=== PATIENT | female | born 1940 | race African-American/Black ===

== ENCOUNTER 2024-10-25 07:26 | Inpatient (IN) | payer OTHER, MEDICARE ==
[~2024-10-25] VITALS: Ht 165.1 cm; Wt 57.2 kg
[2024-10-25] VITALS (53 sets, daily range): BP systolic 117–152; BP diastolic 74–136; PULSE 72–126; RESP 11–37; TEMP 36.5–36.8; O2SAT 93–99
[2024-10-25] MEDS ORDERED: IODIXANOL 320MG/ML 100 ML BOTTLE IV ONE ×2 (07:36→08:12)
[2024-10-25] MEDS ORDERED: HEPARIN 1000 UNITS/ML 10ML ONE (07:36)
[2024-10-25] MEDS ORDERED: LIDOCAINE HCL 1% 20ML VIAL ONE (07:36)
[2024-10-25] MEDS ORDERED: FENTANYL CITRATE/PF 50MCG/ML 2ML VIAL ONE (07:37)
[2024-10-25] MEDS ORDERED: MIDAZOLAM HCL 2 MG/2 ML VIAL ONE (07:37)
[2024-10-25] MEDS: HEPARIN 5000 UNITS/ML VIAL IV ONE (07:38)
[2024-10-25] MEDS: ASPIRIN 325MG TABLET PO ONE (07:38)
[2024-10-25] MEDS ORDERED: ONDANSETRON HCL 4MG/2ML INJ ONE (07:45)
[2024-10-25] MEDS ORDERED: EPINEPHRINE 0.1MG/ML (1:10,000) 10ML SYR ONE (07:49)
[2024-10-25] MEDS ORDERED: ATROPINE SULFATE 1MG/10ML SYR ONE (07:49)
[2024-10-25 07:54] LABS: BASOPHILS % 0.9 % (0.0-2.0); DIFFERENTIAL COMMENT 0; EOSINOPHILS % 1.6 % (0.0-5.0); HEMATOCRIT. 45.1 % (36.0-48.0); HEMOGLOBIN. 14.7 g/dL (12.0-16.0); LYMPHOCYTES % 23.8 % (20.0-50.0); MEAN CORPUSCULAR HEMOGLOBIN 29.9 pg (28.0-32.0); MEAN CORPUSCULAR HGB CONC 32.7 g/dL (31.0-37.0); MEAN CORPUSCULAR VOLUME 91.6 fL (81.0-99.0); MEAN PLATELET VOLUME 8.7 fl (7.4-10.4); MONOCYTES % 6.1 % (2.0-8.0); NEUTROPHILS % 67.6 % (40.0-76.0); PLATELET 662 x1000/uL (130-400); RED BLOOD CELL COUNT 4.92 mill/uL (4.2-5.4); RED CELL DISTRIBUTION WIDTH 16.6 % (11.6-14.6); WHITE BLOOD COUNT 11.6 x1000/uL (4.5-11.0)
[2024-10-25 08:20] LABS: CALCIUM 9.7 mg/dL (8.7-10.4); CARBON DIOXIDE 26 mEq/L (21-32)
[2024-10-25 08:24] LABS: CHLORIDE 106 mEq/L (98-107); POTASSIUM 4.3 mEq/L (3.5-5.1); SODIUM 142 mEq/L (136-145)
[2024-10-25 08:25] LABS: CREATININE 0.9 mg/dL (0.6-1.0); GLUCOSE 178 mg/dL (70-105); UREA NITROGEN BLOOD 8 mg/dL (9-23)
[2024-10-25] MEDS ORDERED: TICAGRELOR 90 MG TABLET PO ONE (08:26)
[2024-10-25 08:32] LABS: TROPONIN I HIGH SENSITIVITY 1913 ng/L (3.0-34)
[2024-10-25] MEDS ORDERED: ATROPINE SULFATE 1MG/10ML SYR IV PRN (08:45)
[2024-10-25] MEDS ORDERED: MORPHINE SULFATE 2 MG/ML INJ (NOT FOR IM USE) IV PRN ×2 (08:45)
[2024-10-25] MEDS ORDERED: ACETAMINOPHEN 325MG TABLET PO PRN ×3 (08:45→10:00)
[2024-10-25] MEDS ORDERED: ONDANSETRON HCL 4MG/2ML INJ IV PRN ×2 (08:45→10:00)
[2024-10-25] MEDS ORDERED: DEXTROSE 50% WATER 50ML SYRINGE IV PRN (10:00)
[2024-10-25] MEDS ORDERED: CLONIDINE 0.1MG TABLET PO PRN (10:00)
[2024-10-25] MEDS ORDERED: GUAIFENESIN 200MG/10ML SUGAR FREE UDC PO PRN (10:00)
[2024-10-25] MEDS ORDERED: DOCUSATE SODIUM 100MG CAPSULE PO PRN (10:00)
[2024-10-25] MEDS ORDERED: IPRATROPIUM/ALBUTEROL 0.5-3(2.5)MG/3ML NEB HHN PRN (10:00)
[2024-10-25] MEDS ORDERED: MAGNESIUM/ALUMINUM HYDROXIDE/SIMETHICONE 30ML UDC PO PRN (10:00)
[2024-10-25] MEDS: SODIUM CHLORIDE 0.45% 1,000 ML IV SCH (10:43)
[2024-10-25] MEDS: BLOOD SUGAR DIAGNOSTIC STRIP TEST SCH (11:50)
[2024-10-25 12:35] LABS: TROPONIN I HIGH SENSITIVITY 11007 ng/L (3.0-34)
[2024-10-25] MEDS: INSULIN LISPRO 100 UNITS/ML SUBCUT SCH (12:43)
[2024-10-25 14:26] LABS: CLARITY URINE CLEAR (CLEAR); COLOR URINE YELLOW (YELLOW); GLUCOSE URINE NEGATIVE (NEGATIVE); KETONES URINE NEGATIVE (NEGATIVE); LEUKOCYTE ESTERASE URINE NEGATIVE (NEGATIVE); NITRITE URINE NEGATIVE (NEGATIVE); OCCULT BLOOD URINE 3+ (NEGATIVE); PROTEIN URINE 1+ (NEGATIVE); SPECIFIC GRAVITY URINE 1.061 (1.005-1.030); UROBILINOGEN URINE 0.2 E.U./dL (0.2-1.0)
[2024-10-25 14:47] LABS: BACTERIA URINE 2+; RBC URINE 0-2 /hpf (0-2); SQUAMOUS EPITHELIAL CELL URINE 1+ /lpf (RARE/1+); YEAST URINE NONE SEEN
[2024-10-25 14:49] LABS: *AMPHETAMINES SCREEN URINE NEGATIVE (NEGATIVE); *BARBITURATES SCREEN URINE NEGATIVE (NEGATIVE); *BENZODIAZEPINES SCREEN URINE PRESUMPTIVE POSITIVE (NEGATIVE); *COCAINE SCREEN URINE NEGATIVE (NEGATIVE); METHADONE URINE SCREEN NEGATIVE (NEGATIVE); OPIATES URINE SCREEN NEGATIVE (NEGATIVE)
[2024-10-25 14:50] LABS: CANNABINOID URINE SCREEN NEGATIVE (NEGATIVE); ECSTASY MDMA SCREEN URINE NEGATIVE (NEGATIVE); PHENCYCLIDINE URINE SCREEN NEGATIVE (NEGATIVE)
[2024-10-25] MEDS: METOPROLOL TARTRATE 25MG TABLET PO SCH (16:30)
[2024-10-25] MEDS: HYDROCODONE/ACETAMINOPHEN 5/325MG TABLET PO PRN (16:31)
[2024-10-25 18:14] LABS: CREATINE KINASE 1513 IU/L (34-145)
[2024-10-25 18:52] LABS: TROPONIN I HIGH SENSITIVITY 72953 ng/L (3.0-34)
[2024-10-25] MEDS: TICAGRELOR 90 MG TABLET PO SCH (22:19)
[2024-10-25] MEDS: ATORVASTATIN CALCIUM 40MG TABLET PO SCH (22:21)
[2024-10-26] VITALS (51 sets, daily range): BP systolic 98–149; BP diastolic 59–101; PULSE 72–124; RESP 15–36; TEMP 36.7–37.1; O2SAT 88–97
[2024-10-26 00:09] LABS: CREATINE KINASE 1098 IU/L (34-145)
[2024-10-26 00:35] LABS: TROPONIN I HIGH SENSITIVITY > 25000 ng/L (3.0-34)
[2024-10-26 07:52] LABS: BASOPHILS % 0.5 % (0.0-2.0); DIFFERENTIAL COMMENT 0; EOSINOPHILS % 0.1 % (0.0-5.0); HEMATOCRIT. 45.3 % (36.0-48.0); HEMOGLOBIN. 14.2 g/dL (12.0-16.0); LYMPHOCYTES % 10.1 % (20.0-50.0); MEAN CORPUSCULAR HEMOGLOBIN 27.8 pg (28.0-32.0); MEAN CORPUSCULAR HGB CONC 31.3 g/dL (31.0-37.0); MEAN CORPUSCULAR VOLUME 88.8 fL (81.0-99.0); MEAN PLATELET VOLUME 8.8 fl (7.4-10.4); MONOCYTES % 8.9 % (2.0-8.0); NEUTROPHILS % 80.4 % (40.0-76.0); PLATELET 668 x1000/uL (130-400); RED BLOOD CELL COUNT 5.11 mill/uL (4.2-5.4); RED CELL DISTRIBUTION WIDTH 16.4 % (11.6-14.6); WHITE BLOOD COUNT 13.7 x1000/uL (4.5-11.0)
[2024-10-26 07:55] LABS: CHLORIDE 102 mEq/L (98-107); POTASSIUM 4.5 mEq/L (3.5-5.1); SODIUM 139 mEq/L (136-145)
[2024-10-26 07:56] LABS: CALCIUM 9.8 mg/dL (8.7-10.4); CARBON DIOXIDE 28 mEq/L (21-32)
[2024-10-26 08:01] LABS: CREATININE 0.8 mg/dL (0.6-1.0); GLUCOSE 117 mg/dL (70-105); TRIGLYCERIDE 79 mg/dL (0-150); UREA NITROGEN BLOOD 12 mg/dL (9-23)
[2024-10-26 08:02] LABS: LDL CHOLESTEROL 88 mg/dL (5-100)
[2024-10-26 08:03] LABS: ALANINE AMINOTRANSFERASE 21 IU/L (10-49); ALBUMIN 3.8 g/dL (3.2-4.8); ASPARTATE AMINOTRANSFERASE 133 IU/L (<34); CHOLESTEROL 189 mg/dL (<200); HDL CHOLESTEROL 67 mg/dL (>65); PHOSPHORUS 3.2 mg/dL (2.5-4.9); THYROID STIMULATING HORMONE 0.45 uIU/mL (0.55-4.78)
[2024-10-26 08:04] LABS: BILIRUBIN TOTAL 0.8 mg/dL (0.1-1.0); PROTEIN TOTAL 6.9 g/dL (6.0-8.3)
[2024-10-26] MEDS: ASPIRIN 81MG TABLET PO SCH (09:47)
[2024-10-26] MEDS ORDERED: VERAPAMIL HCL 2.5 MG/1 ML 2ML VIAL IV ONE (10:11)
[2024-10-26] MEDS ORDERED: IODIXANOL 320 MG/ML 150ML BOTTLE IV ONE (10:11)
[2024-10-26] MEDS ORDERED: HEPARIN 1000 UNITS/ML 10ML ONE (10:12)
[2024-10-26] MEDS ORDERED: EPINEPHRINE 0.1MG/ML (1:10,000) 10ML SYR ONE (10:15)
[2024-10-26] MEDS ORDERED: DIPHENHYDRAMINE 50MG/ML VIAL ONE (10:37)
[2024-10-26] MEDS ORDERED: ONDANSETRON HCL 4MG/2ML INJ ONE (10:38)
[2024-10-26] MEDS ORDERED: MIDAZOLAM HCL 2 MG/2 ML VIAL ONE (10:38)
[2024-10-26] MEDS ORDERED: FENTANYL CITRATE/PF 50MCG/ML 2ML VIAL ONE (10:38)
[2024-10-26 11:04] LABS: PROTHROMBIN TIME 10.8 sec (9.6-11.0)
[2024-10-26] MEDS ORDERED: ACETAMINOPHEN 325MG TABLET PO PRN (12:15)
[2024-10-26] MEDS ORDERED: ATROPINE SULFATE 1MG/10ML SYR IV PRN (12:15)
[2024-10-26] MEDS ORDERED: NALOXONE HCL 0.4MG/ML VIAL IV PRN (16:45)
[2024-10-27] VITALS (9 sets, daily range): BP systolic 104–161; BP diastolic 52–142; PULSE 79–114; RESP 18–24; TEMP 36.4–36.8; O2SAT 93–98
[2024-10-27 10:24] LABS: BASOPHILS % 0.9 % (0.0-2.0); DIFFERENTIAL COMMENT 0; EOSINOPHILS % 0.1 % (0.0-5.0); HEMATOCRIT. 42.6 % (36.0-48.0); HEMOGLOBIN. 13.6 g/dL (12.0-16.0); MEAN CORPUSCULAR HEMOGLOBIN 28.9 pg (28.0-32.0); MEAN CORPUSCULAR HGB CONC 32.1 g/dL (31.0-37.0); MEAN CORPUSCULAR VOLUME 90.3 fL (81.0-99.0); MEAN PLATELET VOLUME 9.1 fl (7.4-10.4); MONOCYTES % 9.6 % (2.0-8.0); NEUTROPHILS % 78.4 % (40.0-76.0); PLATELET 578 x1000/uL (130-400); RED BLOOD CELL COUNT 4.71 mill/uL (4.2-5.4); RED CELL DISTRIBUTION WIDTH 16.3 % (11.6-14.6); WHITE BLOOD COUNT 12.9 x1000/uL (4.5-11.0)
[2024-10-27 10:33] LABS: CHLORIDE 103 mEq/L (98-107); SODIUM 138 mEq/L (136-145)
[2024-10-27 10:34] LABS: CALCIUM 9.6 mg/dL (8.7-10.4); CARBON DIOXIDE 26 mEq/L (21-32)
[2024-10-27 10:39] LABS: CREATININE 0.8 mg/dL (0.6-1.0); GLUCOSE 132 mg/dL (70-105); UREA NITROGEN BLOOD 17 mg/dL (9-23)
[2024-10-27] MEDS ORDERED: TICA90TA PO (16:12)
[2024-10-27] MEDS ORDERED: METO25TA6 PO (16:12)
[2024-10-27] MEDS ORDERED: LIP40 PO (16:12)
[2024-10-27] MEDS ORDERED: ASPI-1160 PO (16:12)
[2024-10-27] MEDS ORDERED: SACU1TAB MT (16:12)
== END 2024-10-27 18:15 | disposition home or self-care (01) | DRG 250 ==
LOC: ER 07:26 → CVICU 09:33 → 3WST 10-27 02:15
PROVIDERS: ADMIT Hospitalist; ATTEND Hospitalist
PROC: 4A023N7 Measurement of Cardiac Sampling and Pressure, Left Heart, Percutaneous Approach (ICD-10-PCS; principal; 2024-10-26)
PROC: 02703ZZ Dilation of Coronary Artery, One Artery, Percutaneous Approach (ICD-10-PCS; 2024-10-26)
PROC: B211YZZ Fluoroscopy of Multiple Coronary Arteries using Other Contrast (ICD-10-PCS; 2024-10-26)
DX: I21.09 ST elevation (STEMI) myocardial infarction involving other coronary artery of anterior wall (principal); I50.21 Acute systolic (congestive) heart failure; Q25.0 Patent ductus arteriosus; E11.9 Type 2 diabetes mellitus without complications; E78.00 Pure hypercholesterolemia, unspecified; I11.0 Hypertensive heart disease with heart failure; I25.10 Atherosclerotic heart disease of native coronary artery without angina pectoris; I44.0 Atrioventricular block, first degree; K59.00 Constipation, unspecified; R74.8 Abnormal levels of other serum enzymes; D75.839 Thrombocytosis, unspecified; E03.8 Other specified hypothyroidism; I25.2 Old myocardial infarction; Z79.4 Long term (current) use of insulin; Z79.82 Long term (current) use of aspirin
CPT/HCPCS: 36415; 71045; 80048; 80053; 80061; 80305; 81003; 82550; 82962; 83036; 83735; 83880; 84100; 84439; 84443; 84484; 85025; 85347; 86850; 86900; 92920; 92941; 93005; 93306; 93454; 93458; 93970; 99291; A4606; C1725; C1769; C1874; C1887; C1893; J0461; J1200; J1644; J2250; J2270; J2405; J3010; J3490; L1830; Q9967; J8499

== ENCOUNTER 2024-12-28 04:03 | Inpatient (IN) | payer MEDICARE, OTHER ==
[2024-12-28] VITALS (7 sets, daily range): BP systolic 95–131; BP diastolic 45–73; PULSE 90–98; RESP 16–20; TEMP 36.6–37.1; O2SAT 95–98
[~2024-12-28] VITALS: Ht 160 cm; Wt 52.6 kg
[~2024-12-28 04:03] MED LIST: ASPI-1160 PO; ASPI-1406 MT; ATOR-2 MT; CLOP-31 MT; CYAN50007 PO; HYDR500C18 PO; METO25TA6 MT; METO25TA6 PO; PROT20 PO; SACU1TAB MT; TICA90TA PO
[2024-12-28] MEDS: IPRATROPIUM BROMIDE (0.02%) 0.5MG/2.5ML NEB HHN ONE (04:44)
[2024-12-28] MEDS: ALBUTEROL (0.083%) 2.5MG/3ML NEB HHN ONE (04:44)
[2024-12-28 04:48] LABS: BASOPHILS % 0.9 % (0.0-2.0); DIFFERENTIAL COMMENT 0; EOSINOPHILS % 1.8 % (0.0-5.0); HEMATOCRIT. 39.9 % (36.0-48.0); HEMOGLOBIN. 12.2 g/dL (12.0-16.0); LYMPHOCYTES % 23.5 % (20.0-50.0); MEAN CORPUSCULAR HEMOGLOBIN 27.8 pg (28.0-32.0); MEAN CORPUSCULAR HGB CONC 30.7 g/dL (31.0-37.0); MEAN CORPUSCULAR VOLUME 90.5 fL (81.0-99.0); MEAN PLATELET VOLUME 9.9 fl (7.4-10.4); MONOCYTES % 5.6 % (2.0-8.0); NEUTROPHILS % 68.2 % (40.0-76.0); PLATELET 586 x1000/uL (130-400); RED BLOOD CELL COUNT 4.41 mill/uL (4.2-5.4); WHITE BLOOD COUNT 9.9 x1000/uL (4.5-11.0)
[2024-12-28 05:03] LABS: PARTIAL THROMBOPLASTIN TIME 22.8 sec (23.4-31.0)
[2024-12-28 05:04] LABS: CHLORIDE 113 mEq/L (98-107); SODIUM 145 mEq/L (136-145)
[2024-12-28 05:05] LABS: CALCIUM 9.6 mg/dL (8.7-10.4); CARBON DIOXIDE 24 mEq/L (21-32)
[2024-12-28 05:10] LABS: CREATININE 1.2 mg/dL (0.6-1.0); ETHANOL BLOOD < 10 mg/dL (<10); GLUCOSE 155 mg/dL (70-105); UREA NITROGEN BLOOD 9 mg/dL (9-23)
[2024-12-28 05:22] LABS: TROPONIN I HIGH SENSITIVITY 246 ng/L (3.0-34)
[2024-12-28] MEDS: ASPIRIN 81MG TABLET PO ONE (05:41)
[2024-12-28] MEDS: METHYLPREDNISOLONE SOD SUCC 125MG/2ML (ACT-O-VIAL) IV ONE (05:42)
[2024-12-28] MEDS: ENOXAPARIN 40MG/0.4ML SYR SUBCUT ONE (05:42)
[2024-12-28] MEDS: ONDANSETRON HCL 4MG/2ML INJ IV ONE (05:50)
[2024-12-28 07:39] LABS: *AMPHETAMINES SCREEN URINE NEGATIVE (NEGATIVE); *BARBITURATES SCREEN URINE NEGATIVE (NEGATIVE); *BENZODIAZEPINES SCREEN URINE NEGATIVE (NEGATIVE); *COCAINE SCREEN URINE NEGATIVE (NEGATIVE); CANNABINOID URINE SCREEN NEGATIVE (NEGATIVE); ECSTASY MDMA SCREEN URINE NEGATIVE (NEGATIVE); METHADONE URINE SCREEN NEGATIVE (NEGATIVE); OPIATES URINE SCREEN NEGATIVE (NEGATIVE); PHENCYCLIDINE URINE SCREEN NEGATIVE (NEGATIVE)
[2024-12-28 08:04] LABS: TROPONIN I HIGH SENSITIVITY 281 ng/L (3.0-34)
[2024-12-28] MEDS: SODIUM CHLORIDE 0.9% 200 ML IV ONE ×2 (08:10→08:13)
[2024-12-28] MEDS ORDERED: ONDANSETRON HCL 4MG/2ML INJ IV PRN (09:30)
[2024-12-28] MEDS ORDERED: DOCUSATE SODIUM 100MG CAPSULE PO PRN (09:30)
[2024-12-28] MEDS ORDERED: CLONIDINE 0.1MG TABLET PO PRN (09:30)
[2024-12-28] MEDS ORDERED: MAGNESIUM/ALUMINUM HYDROXIDE/SIMETHICONE 30ML UDC PO PRN (09:30)
[2024-12-28] MEDS ORDERED: IPRATROPIUM/ALBUTEROL 0.5-3(2.5)MG/3ML NEB HHN PRN (09:30)
[2024-12-28] MEDS ORDERED: HYDROCODONE/ACETAMINOPHEN 5/325MG TABLET PO PRN (09:30)
[2024-12-28] MEDS ORDERED: NITROGLYCERIN 0.4MG TABLET SL SL PRN (09:30)
[2024-12-28] MEDS ORDERED: MORPHINE SULFATE 2 MG/ML INJ (NOT FOR IM USE) IV PRN (09:30)
[2024-12-28] MEDS ORDERED: ACETAMINOPHEN 325MG TABLET PO PRN (09:30)
[2024-12-28 11:30] LABS: CLARITY URINE CLEAR (CLEAR); COLOR URINE DARK YELLOW (YELLOW); GLUCOSE URINE 3+ (NEGATIVE); KETONES URINE TRACE (NEGATIVE); LEUKOCYTE ESTERASE URINE NEGATIVE (NEGATIVE); NITRITE URINE NEGATIVE (NEGATIVE); OCCULT BLOOD URINE NEGATIVE (NEGATIVE); PROTEIN URINE 1+ (NEGATIVE); SPECIFIC GRAVITY URINE 1.034 (1.005-1.030)
[2024-12-28] MEDS: ASPIRIN 325MG EC TABLET PO NR (11:40)
[2024-12-28] MEDS: NICOTINE 14MG PATCH TD SCH (11:41)
[2024-12-28 12:27] LABS: MUCUS URINE 3+ /lpf (< = 2+); SQUAMOUS EPITHELIAL CELL URINE 2+ /lpf (RARE/1+)
[2024-12-28 12:29] LABS: BACTERIA URINE 3+; CALCIUM OXALATE CRYSTALS URINE 2+ /lpf
[2024-12-28 12:31] LABS: RBC URINE NONE SEEN /hpf (0-2); WBC URINE 0-2 /hpf (0-2)
[2024-12-28 12:45] LABS: TROPONIN I HIGH SENSITIVITY 2162 ng/L (3.0-34)
[2024-12-28] MEDS: CEFTRIAXONE 1GM/50ML 50 ML IV SCH (12:53)
[2024-12-28] MEDS: AZITHROMYCIN 500MG/250ML 250 ML IV SCH (13:30)
[2024-12-28] MEDS: ENOXAPARIN 60MG/0.6ML SYR SUBCUT SCH (14:35)
[2024-12-28] MEDS: IPRATROPIUM/ALBUTEROL 0.5-3(2.5)MG/3ML NEB HHN SCH (14:41)
[2024-12-28 17:13] LABS: CREATINE KINASE MB FRACTION 9.1 ng/mL (0.5-3.6)
[2024-12-28] MEDS: SACUBITRIL/VALSARTAN 24MG/26MG TABLET PO SCH (22:13)
[2024-12-28] MEDS: ATORVASTATIN CALCIUM 40MG TABLET PO SCH (22:13)
[2024-12-28] MEDS: METOPROLOL TARTRATE 25MG TABLET PO SCH (22:13)
[2024-12-29] VITALS (10 sets, daily range): BP systolic 91–138; BP diastolic 60–79; PULSE 76–97; RESP 16–20; TEMP 36.3–36.9; O2SAT 95–99
[2024-12-29 00:40] LABS: CREATINE KINASE MB FRACTION 8.4 ng/mL (0.5-3.6)
[2024-12-29 07:12] LABS: BASOPHILS % 0.1 % (0.0-2.0); DIFFERENTIAL COMMENT 0; HEMATOCRIT. 37.2 % (36.0-48.0); HEMOGLOBIN. 11.7 g/dL (12.0-16.0); LYMPHOCYTES % 9.8 % (20.0-50.0); MEAN CORPUSCULAR HEMOGLOBIN 27.8 pg (28.0-32.0); MEAN CORPUSCULAR HGB CONC 31.5 g/dL (31.0-37.0); MEAN CORPUSCULAR VOLUME 88.4 fL (81.0-99.0); MEAN PLATELET VOLUME 9.5 fl (7.4-10.4); MONOCYTES % 5.7 % (2.0-8.0); NEUTROPHILS % 84.4 % (40.0-76.0); PLATELET 518 x1000/uL (130-400); RED BLOOD CELL COUNT 4.21 mill/uL (4.2-5.4); RED CELL DISTRIBUTION WIDTH 18.8 % (11.6-14.6); WHITE BLOOD COUNT 11.2 x1000/uL (4.5-11.0)
[2024-12-29 07:22] LABS: CHLORIDE 110 mEq/L (98-107); POTASSIUM 4.3 mEq/L (3.5-5.1); SODIUM 141 mEq/L (136-145)
[2024-12-29 07:23] LABS: CALCIUM 9.6 mg/dL (8.7-10.4); CARBON DIOXIDE 24 mEq/L (21-32)
[2024-12-29 07:24] LABS: T4 FREE 1.22 ng/dL (0.89-1.76); THYROID STIMULATING HORMONE 0.32 uIU/mL (0.55-4.78)
[2024-12-29 07:28] LABS: GLUCOSE 99 mg/dL (70-105); TRIGLYCERIDE 85 mg/dL (0-150); UREA NITROGEN BLOOD 14 mg/dL (9-23)
[2024-12-29 07:29] LABS: LDL CHOLESTEROL 71 mg/dL (5-100)
[2024-12-29 07:30] LABS: CHOLESTEROL 159 mg/dL (<200); HDL CHOLESTEROL 60 mg/dL (>65)
[2024-12-29 08:26] LABS: TROPONIN I HIGH SENSITIVITY 4003 ng/L (3.0-34)
[2024-12-29] MEDS ORDERED: ENOXAPARIN 40MG/0.4ML SYR SUBCUT SCH (09:00)
[2024-12-29] MEDS: PANTOPRAZOLE SODIUM 40 MG/VIAL IV SCH (09:02)
[2024-12-29] MEDS: FUROSEMIDE 40MG/4ML VIAL IV SCH (09:02)
[2024-12-29] MEDS: HYDROXYUREA 500MG CAPSULE PO SCH (09:06)
[2024-12-29] MEDS: CLOPIDOGREL 75MG TABLET PO SCH (09:06)
[2024-12-29] MEDS: ASPIRIN 81MG EC TABLET PO SCH (09:06)
[2024-12-30] VITALS (11 sets, daily range): BP systolic 92–105; BP diastolic 55–68; PULSE 70–109; RESP 14–20; TEMP 36.2–36.8; O2SAT 94–98
[2024-12-30] MEDS: ACETAMINOPHEN 325MG TABLET PO PRN (01:41)
[2024-12-30 06:21] LABS: CHLORIDE 109 mEq/L (98-107); POTASSIUM 3.6 mEq/L (3.5-5.1); SODIUM 142 mEq/L (136-145)
[2024-12-30 06:22] LABS: CALCIUM 9.4 mg/dL (8.7-10.4); CARBON DIOXIDE 24 mEq/L (21-32)
[2024-12-30 06:27] LABS: GLUCOSE 86 mg/dL (70-105); UREA NITROGEN BLOOD 14 mg/dL (9-23)
[2024-12-30 06:38] LABS: HEMATOCRIT 33.8 % (36.0-48.0); HEMOGLOBIN 10.7 g/dL (12.0-16.0); MEAN CORPUSCULAR HGB CONC 31.5 g/dL (31.0-37.0); MEAN CORPUSCULAR VOLUME 88.7 fL (81.0-99.0); PLATELET 476 x1000/uL (130-400); RED BLOOD CELL COUNT 3.81 mill/uL (4.2-5.4); RED CELL DISTRIBUTION WIDTH 18.3 % (11.6-14.6); WHITE BLOOD COUNT 9.5 x1000/uL (4.5-11.0)
[2024-12-30 15:53] LABS: CREATINE KINASE MB FRACTION 2.8 ng/mL (0.5-3.6)
[2024-12-30] MEDS: POLYETHYLENE GLYCOL 3350 (17GM) 1 DOSE PACK PO SCH (16:02)
[2024-12-31] VITALS (10 sets, daily range): BP systolic 88–167; BP diastolic 42–75; PULSE 80–106; RESP 17–20; TEMP 36.4–36.6; O2SAT 69–100
[2024-12-31 06:22] LABS: CALCIUM 9.5 mg/dL (8.7-10.4); CARBON DIOXIDE 25 mEq/L (21-32); CHLORIDE 109 mEq/L (98-107); POTASSIUM 3.7 mEq/L (3.5-5.1); SODIUM 144 mEq/L (136-145)
[2024-12-31 06:28] LABS: CREATININE 0.9 mg/dL (0.6-1.0); GLUCOSE 86 mg/dL (70-105); UREA NITROGEN BLOOD 14 mg/dL (9-23)
[2024-12-31 06:30] LABS: HEMATOCRIT 36.8 % (36.0-48.0); HEMOGLOBIN 12.1 g/dL (12.0-16.0); MEAN CORPUSCULAR HEMOGLOBIN 28.2 pg (28.0-32.0); MEAN CORPUSCULAR HGB CONC 32.9 g/dL (31.0-37.0); MEAN CORPUSCULAR VOLUME 85.9 fL (81.0-99.0); PLATELET 472 x1000/uL (130-400); RED BLOOD CELL COUNT 4.28 mill/uL (4.2-5.4); WHITE BLOOD COUNT 7.4 x1000/uL (4.5-11.0)
[2024-12-31] MEDS: FAMOTIDINE 20MG/2ML VIAL IV SCH (10:00)
[2024-12-31] MEDS: GUAIFENESIN 200MG/10ML SUGAR FREE UDC PO PRN (14:15)
[2025-01-01] VITALS (7 sets, daily range): BP systolic 91–113; BP diastolic 55–72; PULSE 69–108; RESP 18–20; TEMP 35.9–36.9; O2SAT 95–100
[2025-01-01 06:19] LABS: HEMATOCRIT 38.5 % (36.0-48.0); HEMOGLOBIN 12.3 g/dL (12.0-16.0); MEAN CORPUSCULAR HEMOGLOBIN 27.6 pg (28.0-32.0); MEAN CORPUSCULAR HGB CONC 31.8 g/dL (31.0-37.0); MEAN CORPUSCULAR VOLUME 86.5 fL (81.0-99.0); PLATELET 457 x1000/uL (130-400); RED BLOOD CELL COUNT 4.45 mill/uL (4.2-5.4); WHITE BLOOD COUNT 8.2 x1000/uL (4.5-11.0)
[2025-01-01 06:24] LABS: PROTHROMBIN TIME 11.2 sec (9.6-11.0)
[2025-01-01 06:34] LABS: CHLORIDE 107 mEq/L (98-107); POTASSIUM 3.4 mEq/L (3.5-5.1); SODIUM 142 mEq/L (136-145)
[2025-01-01 06:35] LABS: CALCIUM 9.3 mg/dL (8.7-10.4); CARBON DIOXIDE 25 mEq/L (21-32)
[2025-01-01 06:40] LABS: CREATININE 0.9 mg/dL (0.6-1.0); GLUCOSE 84 mg/dL (70-105)
[2025-01-01 06:41] LABS: UREA NITROGEN BLOOD 9 mg/dL (9-23)
[2025-01-01] MEDS: POTASSIUM CHLORIDE 20MEQ/PACKET PO NR (10:10)
[2025-01-01] MEDS: AZITHROMYCIN 500 MG TABLET PO SCH (12:37)
[2025-01-02] VITALS (15 sets, daily range): BP systolic 85–123; BP diastolic 37–79; PULSE 56–107; RESP 13–30; TEMP 36.2–36.8; O2SAT 93–99
[2025-01-02 07:09] LABS: CARBON DIOXIDE 24 mEq/L (21-32); CHLORIDE 109 mEq/L (98-107); SODIUM 142 mEq/L (136-145)
[2025-01-02 07:11] LABS: CALCIUM 9.6 mg/dL (8.7-10.4)
[2025-01-02 07:13] LABS: HEMATOCRIT 39.4 % (36.0-48.0); HEMOGLOBIN 12.7 g/dL (12.0-16.0); MEAN CORPUSCULAR HEMOGLOBIN 27.8 pg (28.0-32.0); MEAN CORPUSCULAR HGB CONC 32.1 g/dL (31.0-37.0); MEAN CORPUSCULAR VOLUME 86.5 fL (81.0-99.0); PLATELET 462 x1000/uL (130-400); RED BLOOD CELL COUNT 4.55 mill/uL (4.2-5.4); WHITE BLOOD COUNT 7.9 x1000/uL (4.5-11.0)
[2025-01-02 07:15] LABS: CREATININE 0.9 mg/dL (0.6-1.0); GLUCOSE 105 mg/dL (70-105); UREA NITROGEN BLOOD 11 mg/dL (9-23)
[2025-01-02] MEDS ORDERED: IODIXANOL 320MG/ML 100 ML BOTTLE IV ONE (07:57)
[2025-01-02] MEDS ORDERED: LIDOCAINE HCL 1% 20ML VIAL ONE (07:57)
[2025-01-02] MEDS ORDERED: FENTANYL CITRATE/PF 50MCG/ML 2ML VIAL ONE (09:42)
[2025-01-02] MEDS ORDERED: MIDAZOLAM HCL 2 MG/2 ML VIAL ONE (09:42)
[2025-01-02] MEDS ORDERED: HEPARIN 1000 UNITS/ML 10ML ONE (09:42)
[2025-01-03 00:01] VITALS: BP_SYST 84; BP_SYST 86; BP_DIAS 50; BP_DIAS 53; PULSE 87; RESP 18; TEMP 36.6; O2SAT 94
[2025-01-03 04:01] VITALS: BP 106/62; PULSE 103; RESP 25; TEMP 36.1; O2SAT 100
[2025-01-03 08:00] VITALS: BP 85/58; PULSE 98; RESP 20; TEMP 36.7; O2SAT 94
[2025-01-03] MEDS ORDERED: CLOPIDOGREL 75MG TABLET PO SCH (09:00)
[2025-01-03 12:00] VITALS: BP 91/59; PULSE 83; RESP 27; TEMP 36.7; O2SAT 96
[2025-01-03] MEDS ORDERED: ASPI-1406 MT (13:09)
[2025-01-03] MEDS ORDERED: CLOP-31 MT (13:09)
[2025-01-03] MEDS ORDERED: ATOR-2 MT (13:09)
[2025-01-03 13:17] VITALS: BP 102/65; PULSE 94; TEMP 98; O2SAT 98
== END 2025-01-03 15:00 | disposition home or self-care (01) | DRG 280 ==
LOC: ER 04:03 → EDBEDREQ 04:09 → 7WST 05:59 → EDBEDREQ 06:02 → ENRESERV 07:06 → 3WST 01-02 11:12
PROVIDERS: ADMIT Internal Medicine; ATTEND Internal Medicine
PROC: 4A023N7 Measurement of Cardiac Sampling and Pressure, Left Heart, Percutaneous Approach (ICD-10-PCS; principal; 2025-01-02)
PROC: B215YZZ Fluoroscopy of Left Heart using Other Contrast (ICD-10-PCS; 2025-01-02)
PROC: B211YZZ Fluoroscopy of Multiple Coronary Arteries using Other Contrast (ICD-10-PCS; 2025-01-02)
DX: I13.0 Hypertensive heart and chronic kidney disease with heart failure and stage 1 through stage 4 chronic kidney disease, or unspecified chronic kidney disease (principal); I50.43 Acute on chronic combined systolic (congestive) and diastolic (congestive) heart failure; I21.A1 Myocardial infarction type 2; J18.9 Pneumonia, unspecified organism; N17.9 Acute kidney failure, unspecified; J44.0 Chronic obstructive pulmonary disease with (acute) lower respiratory infection; K59.00 Constipation, unspecified; I25.10 Atherosclerotic heart disease of native coronary artery without angina pectoris; E78.5 Hyperlipidemia, unspecified; N18.9 Chronic kidney disease, unspecified; I49.3 Ventricular premature depolarization; Z79.899 Other long term (current) drug therapy; Z79.02 Long term (current) use of antithrombotics/antiplatelets; Z79.82 Long term (current) use of aspirin; Z95.5 Presence of coronary angioplasty implant and graft
CPT/HCPCS: 36415; 71045; 80048; 80061; 80305; 80320; 81003; 82550; 82553; 83880; 84439; 84443; 84484; 85025; 85027; 87426; 93005; 93306; 93458; 94070; 94640; 94664; 94760; 97161; 97166; 99291; A4606; C1769; C1887; C1893; J0456; J0696; J1644; J1650; J1940; J2250; J2405; J2470; J2919; J3010; J3490; Q9967; G0480

== ENCOUNTER 2025-05-05 03:39 | Inpatient (IN) | payer OTHER, MEDICARE ==
[2025-05-05] VITALS (11 sets, daily range): BP systolic 94–122; BP diastolic 65–89; PULSE 79–112; RESP 16–31; TEMP 36–37.1408; O2SAT 97–100
[~2025-05-05] VITALS: Ht 154.9 cm; Wt 50.3 kg
[~2025-05-05 03:39] MED LIST changes: -ASPI-1160 PO; -HYDR500C18 PO; -METO25TA6 MT; -SACU1TAB MT; -TICA90TA PO
[2025-05-05 04:32] LABS: BASOPHILS % 1.1 % (0.0-2.0); EOSINOPHILS % 1.9 % (0.0-5.0); HEMATOCRIT. 39.2 % (36.0-48.0); HEMOGLOBIN. 12.6 g/dL (12.0-16.0); LYMPHOCYTES % 24.8 % (20.0-50.0); MEAN PLATELET VOLUME 8.8 fl (7.4-10.4); MONOCYTES % 5.3 % (2.0-8.0); NEUTROPHILS % 66.9 % (40.0-76.0); PLATELET 442 x1000/uL (130-400); RED BLOOD CELL COUNT 4.30 mill/uL (4.2-5.4); RED CELL DISTRIBUTION WIDTH 25.2 % (11.6-14.6)
[2025-05-05 04:44] LABS: CREATININE 1.1 mg/dL (0.6-1.0)
[2025-05-05 04:45] LABS: ETHANOL BLOOD < 10 mg/dL (<10); INR 1.0; UREA NITROGEN BLOOD 9 mg/dL (9-23)
[2025-05-05 04:45] LABS: BG BASE EXCESS -2.4 mmol/L (-2.0-3.0); BG CARBOXYHEMOGLOBIN 0.8 % (0.5-1.5); BG DEOXYHEMOGLOBIN 0.3 % (0.0-5.0); BG FRACTION INSPIRED OXYGEN 100; BG HCO3 ACT 22.9 mmol/L (21.0-28.0); BG METHEMOGLOBIN 0.3 % (0.5-1.5); BG OXYGEN SATURATION 99.7 % (94.0-98.0); BG OXYHEMOGLOBIN 98.6 % (94.0-98.0); BG PCO2 41.4 mmHg (32.0-45.0); BG PH 7.361 (7.350-7.450); BG PO2 482.9 mmHg (83.0-108.0); BG TOTAL HEMOGLOBIN 13.6 g/dL (12.0-16.0); BG TOTAL RESPIRATORY RATE 23 b/min; BG VENT MODE MASK - BIPAP; BG VENT RATE 18.0 set
[2025-05-05 04:46] LABS: ASPARTATE AMINOTRANSFERASE 22 IU/L (<34)
[2025-05-05 04:47] LABS: BILIRUBIN DIRECT 0.2 mg/dL (<=3.0); BILIRUBIN TOTAL 0.6 mg/dL (0.1-1.0); PROTEIN TOTAL 6.6 g/dL (6.0-8.3)
[2025-05-05 04:48] LABS: BG SAMPLE SITE RIGHT BRACHIAL
[2025-05-05 04:51] LABS: TROPONIN I HIGH SENSITIVITY 190 ng/L (3.0-34)
[2025-05-05] MEDS ORDERED: HEPARIN BOLUS PRN aPTT <30 IV ×3 (05:15→05:22)
[2025-05-05] MEDS ORDERED: HEPARIN 60 UNITS/KG BOLUS IV SCH (05:15)
[2025-05-05] MEDS ORDERED: HEPARIN BOLUS PRN aPTT 30-44 IV ×2 (05:15→05:18)
[2025-05-05] MEDS ORDERED: HEPARIN 60 UNITS/KG BOLUS IV NR (05:30)
[2025-05-05] MEDS: HEPARIN 25,000 UNITS PREMIX 250 ML IV SCH (05:50)
[2025-05-05] MEDS: HEPARIN 60 UNITS/KG BOLUS IV NR (05:50)
[2025-05-05] MEDS: ASPIRIN 325MG EC TABLET PO NR (05:51)
[2025-05-05] MEDS: FUROSEMIDE 40MG/4ML VIAL IVP ONE (05:53)
[2025-05-05 06:51] LABS: INFLUENZA TYPE A Presumptive Negative (Pres. Neg.)
[2025-05-05 06:52] LABS: INFLUENZA TYPE B Presumptive Negative (Pres. Neg.)
[2025-05-05 06:54] LABS: RESPIRATORY SYNCYTIAL VIRUS Not Detected (Not Detectd)
[2025-05-05 07:01] LABS: CLARITY URINE CLEAR (CLEAR); COLOR URINE YELLOW (YELLOW); GLUCOSE URINE 1+ (NEGATIVE); KETONES URINE NEGATIVE (NEGATIVE); LEUKOCYTE ESTERASE URINE NEGATIVE (NEGATIVE); NITRITE URINE NEGATIVE (NEGATIVE); OCCULT BLOOD URINE NEGATIVE (NEGATIVE); PH URINE 5.0 (4.5-8.0); PROTEIN URINE NEGATIVE (NEGATIVE); SPECIFIC GRAVITY URINE 1.008 (1.005-1.030); UROBILINOGEN URINE 0.2 E.U./dL (0.2-1.0)
[2025-05-05 07:27] LABS: SQUAMOUS EPITHELIAL CELL URINE FEW /lpf (RARE/1+); WBC URINE 0-2 /hpf (0-2)
[2025-05-05 07:28] LABS: BACTERIA URINE NONE SEEN; RBC URINE NONE SEEN /hpf (0-2)
[2025-05-05 07:30] LABS: *AMPHETAMINES SCREEN URINE NEGATIVE (NEGATIVE); *BARBITURATES SCREEN URINE NEGATIVE (NEGATIVE); *BENZODIAZEPINES SCREEN URINE NEGATIVE (NEGATIVE); *COCAINE SCREEN URINE NEGATIVE (NEGATIVE)
[2025-05-05 07:31] LABS: CANNABINOID URINE SCREEN NEGATIVE (NEGATIVE); ECSTASY MDMA SCREEN URINE NEGATIVE (NEGATIVE); METHADONE URINE SCREEN NEGATIVE (NEGATIVE); OPIATES URINE SCREEN NEGATIVE (NEGATIVE); PHENCYCLIDINE URINE SCREEN NEGATIVE (NEGATIVE)
[2025-05-05] MEDS ORDERED: MAGNESIUM/ALUMINUM HYDROXIDE/SIMETHICONE 30ML UDC PO PRN (10:15)
[2025-05-05] MEDS: FUROSEMIDE 40MG/4ML VIAL IVP SCH (10:15)
[2025-05-05] MEDS ORDERED: HYDROCODONE/ACETAMINOPHEN 5/325MG TABLET PO PRN (10:15)
[2025-05-05] MEDS ORDERED: ZOLPIDEM TARTRATE 5MG TABLET PO PRN (10:15)
[2025-05-05] MEDS ORDERED: ONDANSETRON HCL 4MG/2ML INJ IV PRN (10:15)
[2025-05-05] MEDS ORDERED: CLONIDINE 0.1MG TABLET PO PRN (10:15)
[2025-05-05] MEDS: ACETAMINOPHEN 325MG TABLET PO PRN (11:30)
[2025-05-05] MEDS: CLOPIDOGREL 75MG TABLET PO SCH (11:31)
[2025-05-05 13:00] LABS: HEPATITIS C AB NON REACTIVE (Neg) (Negative)
[2025-05-05 15:55] LABS: CLARITY URINE CLEAR (CLEAR); COLOR URINE YELLOW (YELLOW); GLUCOSE URINE TRACE (NEGATIVE); KETONES URINE NEGATIVE (NEGATIVE); LEUKOCYTE ESTERASE URINE 1+ (NEGATIVE); NITRITE URINE NEGATIVE (NEGATIVE); OCCULT BLOOD URINE NEGATIVE (NEGATIVE); PH URINE 5.0 (4.5-8.0); PROTEIN URINE NEGATIVE (NEGATIVE); SPECIFIC GRAVITY URINE 1.009 (1.005-1.030); UROBILINOGEN URINE 0.2 E.U./dL (0.2-1.0)
[2025-05-05 16:00] LABS: BACTERIA URINE 1+; RBC URINE 0-2 /hpf (0-2); SQUAMOUS EPITHELIAL CELL URINE 1+ /lpf (RARE/1+)
[2025-05-05 16:06] LABS: *AMPHETAMINES SCREEN URINE NEGATIVE (NEGATIVE); *BARBITURATES SCREEN URINE NEGATIVE (NEGATIVE); *BENZODIAZEPINES SCREEN URINE NEGATIVE (NEGATIVE); *COCAINE SCREEN URINE NEGATIVE (NEGATIVE)
[2025-05-05 16:07] LABS: CANNABINOID URINE SCREEN NEGATIVE (NEGATIVE); ECSTASY MDMA SCREEN URINE NEGATIVE (NEGATIVE); METHADONE URINE SCREEN NEGATIVE (NEGATIVE); OPIATES URINE SCREEN NEGATIVE (NEGATIVE); PHENCYCLIDINE URINE SCREEN NEGATIVE (NEGATIVE)
[2025-05-05] MEDS: ENOXAPARIN 60MG/0.6ML SYR SUBCUT SCH (16:53)
[2025-05-05 17:09] LABS: TROPONIN I HIGH SENSITIVITY 307 ng/L (3.0-34)
[2025-05-05] MEDS: IPRATROPIUM/ALBUTEROL 0.5-3(2.5)MG/3ML NEB NEB SCH (17:42)
[2025-05-05] MEDS: ATORVASTATIN CALCIUM 40MG TABLET PO SCH (20:37)
[2025-05-05] MEDS: METOPROLOL TARTRATE 25MG TABLET PO SCH (21:52)
[2025-05-05 23:56] LABS: TROPONIN I HIGH SENSITIVITY 296 ng/L (3.0-34)
[2025-05-06] VITALS (15 sets, daily range): BP systolic 91–115; BP diastolic 53–81; PULSE 74–96; RESP 13–28; TEMP 36.2–36.7; O2SAT 95–100
[2025-05-06 06:34] LABS: BASOPHILS % 1.1 % (0.0-2.0); EOSINOPHILS % 2.3 % (0.0-5.0); HEMATOCRIT. 40.3 % (36.0-48.0); HEMOGLOBIN. 12.8 g/dL (12.0-16.0); LYMPHOCYTES % 33.8 % (20.0-50.0); MEAN PLATELET VOLUME 8.8 fl (7.4-10.4); MONOCYTES % 9.6 % (2.0-8.0); NEUTROPHILS % 53.2 % (40.0-76.0); PLATELET 421 x1000/uL (130-400); RED BLOOD CELL COUNT 4.45 mill/uL (4.2-5.4); RED CELL DISTRIBUTION WIDTH 24.6 % (11.6-14.6)
[2025-05-06 06:54] LABS: ADD RBC MORPHOLOGY YES
[2025-05-06 07:25] LABS: CREATININE 0.9 mg/dL (0.6-1.0); UREA NITROGEN BLOOD 11 mg/dL (9-23)
[2025-05-06] MEDS: ASPIRIN 81MG EC TABLET PO SCH (10:17)
[2025-05-06] MEDS: PANTOPRAZOLE SODIUM 40 MG/VIAL IV SCH (10:17)
[2025-05-06 12:02] LABS: PLATELET ESTIMATE SLIGHTLY INCREASED
[2025-05-07] VITALS (10 sets, daily range): BP systolic 97–110; BP diastolic 61–74; PULSE 71–80; RESP 13–26; TEMP 36.1–37.1; O2SAT 96–98
[2025-05-07 06:23] LABS: BASOPHILS % 1.5 % (0.0-2.0); EOSINOPHILS % 1.9 % (0.0-5.0); HEMATOCRIT. 37.8 % (36.0-48.0); HEMOGLOBIN. 12.2 g/dL (12.0-16.0); LYMPHOCYTES % 30.1 % (20.0-50.0); MEAN PLATELET VOLUME 9.0 fl (7.4-10.4); MONOCYTES % 10.1 % (2.0-8.0); NEUTROPHILS % 56.4 % (40.0-76.0); PLATELET 401 x1000/uL (130-400); RED BLOOD CELL COUNT 4.14 mill/uL (4.2-5.4); RED CELL DISTRIBUTION WIDTH 23.9 % (11.6-14.6)
[2025-05-07 06:41] LABS: CREATININE 0.9 mg/dL (0.6-1.0)
[2025-05-07 06:42] LABS: UREA NITROGEN BLOOD 11 mg/dL (9-23)
[2025-05-07] MEDS ORDERED: FURO-151 MT (11:09)
[2025-05-07] MEDS ORDERED: CARVEDILOL 6.25 MG TABLET PO SCH (21:00)
== END 2025-05-07 13:54 | disposition home or self-care (01) | DRG 280 ==
LOC: ER 03:39 → 5EST 05:21 → EDBEDREQTM 05:25 → EDBEDREQ 05:25
PROVIDERS: ADMIT Internal Medicine; ATTEND Internal Medicine
PROC: 5A09357 Assistance with Respiratory Ventilation, Less than 24 Consecutive Hours, Continuous Positive Airway Pressure (ICD-10-PCS; principal; 2025-05-05)
DX: I11.0 Hypertensive heart disease with heart failure (principal); I50.23 Acute on chronic systolic (congestive) heart failure; I21.4 Non-ST elevation (NSTEMI) myocardial infarction; J96.01 Acute respiratory failure with hypoxia; I42.9 Cardiomyopathy, unspecified; E78.5 Hyperlipidemia, unspecified; Z20.822 Contact with and (suspected) exposure to COVID-19; I25.10 Atherosclerotic heart disease of native coronary artery without angina pectoris; J44.9 Chronic obstructive pulmonary disease, unspecified; Z95.5 Presence of coronary angioplasty implant and graft; Z79.899 Other long term (current) drug therapy
CPT/HCPCS: 36415; 36600; 71045; 80048; 80076; 80305; 80320; 81003; 82375; 82805; 83605; 83735; 83880; 84443; 84484; 85025; 86705; 87077; 87186; 87340; 87420; 87426; 87804; 93005; 93306; 93970; 94070; 94640; 94660; 94664; 98960; 99291; A4606; J1644; J1650; J1938; J2470; G0480

== ENCOUNTER 2025-06-02 18:44 | Inpatient (IN) | payer OTHER, MEDICARE ==
[~2025-06-02] VITALS: Ht 170.2 cm; Wt 59.4 kg
[~2025-06-02 18:44] MED LIST changes: +FURO-151 MT
[2025-06-02 19:55] LABS: HEMATOCRIT. 41.7 % (36.0-48.0); HEMOGLOBIN. 13.0 g/dL (12.0-16.0); MEAN PLATELET VOLUME 9.3 fl (7.4-10.4); PLATELET 399 x1000/uL (130-400); RED BLOOD CELL COUNT 4.33 mill/uL (4.2-5.4); RED CELL DISTRIBUTION WIDTH 22.3 % (11.6-14.6)
[2025-06-02 20:02] LABS: ADD RBC MORPHOLOGY YES
[2025-06-02 20:03] LABS: CREATININE 1.0 mg/dL (0.6-1.0); UREA NITROGEN BLOOD 8 mg/dL (9-23)
[2025-06-02 20:05] LABS: ASPARTATE AMINOTRANSFERASE 18 IU/L (<34); BILIRUBIN DIRECT 0.1 mg/dL (<=3.0); BILIRUBIN TOTAL 0.4 mg/dL (0.1-1.0); PROTEIN TOTAL 6.8 g/dL (6.0-8.3)
[2025-06-02 20:09] LABS: TROPONIN I HIGH SENSITIVITY 169 ng/L (3.0-34)
[2025-06-02 20:10] LABS: INR 1.0
[2025-06-02] MEDS: ASPIRIN 325MG TABLET PO ONE (20:13)
[2025-06-02] MEDS: NITROGLYCERIN 0.4MG TABLET SL SL ONE (20:15)
[2025-06-02 20:40] LABS: PLATELET ESTIMATE NORMAL
[2025-06-02 22:15] LABS: TROPONIN I HIGH SENSITIVITY 160 ng/L (3.0-34)
[2025-06-02] MEDS ORDERED: NA PHOS,M-B/NA PHOS,DI-BA ENEMA 118ML PR PRN (23:30)
[2025-06-02] MEDS: FUROSEMIDE 40MG/4ML VIAL IV SCH (23:30)
[2025-06-02] MEDS ORDERED: ONDANSETRON HCL 4MG/2ML INJ IV PRN (23:30)
[2025-06-02] MEDS ORDERED: CLONIDINE 0.1MG TABLET PO PRN (23:30)
[2025-06-02] MEDS ORDERED: ACETAMINOPHEN 325MG TABLET PO PRN (23:30)
[2025-06-02] MEDS ORDERED: MAGNESIUM/ALUMINUM HYDROXIDE/SIMETHICONE 30ML UDC PO PRN (23:30)
[2025-06-03] VITALS (8 sets, daily range): BP systolic 105–129; BP diastolic 57–75; PULSE 65–83; RESP 16–18; TEMP 35.6–36.7; O2SAT 96–100
[2025-06-03] MEDS ORDERED: IOHEXOL-350 100 ML BOTTLE ONE (02:44)
[2025-06-03] MEDS ORDERED: SACU1TAB4 (08:03)
[2025-06-03] MEDS: ENOXAPARIN 40MG/0.4ML SYR SUBCUT SCH (08:24)
[2025-06-03] MEDS: METOPROLOL TARTRATE 25MG TABLET PO SCH (08:25)
[2025-06-03] MEDS: TICAGRELOR 90 MG TABLET PO SCH (12:51)
[2025-06-03] MEDS: ASPIRIN 81MG TABLET PO SCH (12:51)
[2025-06-03 13:19] LABS: TRIGLYCERIDE 45.0 mg/dL (0-150)
[2025-06-03 13:20] LABS: LDL CHOLESTEROL 79.0 mg/dL (5-100)
[2025-06-03 13:24] LABS: T4 FREE 1.02 ng/dL (0.89-1.76)
[2025-06-03] MEDS: IPRATROPIUM BROMIDE (0.02%) 0.5MG/2.5ML NEB HHN SCH (14:38)
[2025-06-03] MEDS: EMPAGLIFLOZIN 10MG TABLET PO SCH (17:46)
[2025-06-03] MEDS: ATORVASTATIN CALCIUM 40MG TABLET PO SCH (20:36)
[2025-06-04] VITALS (9 sets, daily range): BP systolic 106–122; BP diastolic 65–79; PULSE 70–85; RESP 17–19; TEMP 36.1–36.5; O2SAT 96–99
[2025-06-04 09:26] LABS: CREATININE 1.1 mg/dL (0.6-1.0); UREA NITROGEN BLOOD 13.0 mg/dL (9-23)
[2025-06-04] MEDS: DEXT 5% WATER 250 ML IV ONE (10:00)
[2025-06-04] MEDS: ACETAMINOPHEN 325MG TABLET PO PRN (18:31)
[2025-06-04 18:36] LABS: CREATINE KINASE MB FRACTION 4.3 ng/mL (0.5-3.6)
[2025-06-04] MEDS: LISINOPRIL 10MG TABLET PO SCH (18:36)
[2025-06-04] MEDS: SPIRONOLACTONE 12.5MG TABLET PO SCH (18:36)
[2025-06-04 18:37] LABS: LDL CHOLESTEROL 82.0 mg/dL (5-100); TRIGLYCERIDE 73.0 mg/dL (0-150)
[2025-06-04 18:40] LABS: T4 FREE 1.25 ng/dL (0.89-1.76)
[2025-06-04 18:50] LABS: TROPONIN I HIGH SENSITIVITY 148.0 ng/L (3.0-34)
[2025-06-05] VITALS (10 sets, daily range): BP systolic 86–121; BP diastolic 41–77; PULSE 64–99; RESP 16–19; TEMP 25.6–36.5; O2SAT 95–100
[2025-06-05 01:39] LABS: CREATINE KINASE MB FRACTION 4.1 ng/mL (0.5-3.6)
[2025-06-05 01:50] LABS: TROPONIN I HIGH SENSITIVITY 156.0 ng/L (3.0-34)
[2025-06-05] MEDS: SODIUM CHLORIDE 0.9% 500 ML IV ONE (10:15)
[2025-06-05 12:13] LABS: CREATINE KINASE MB FRACTION 4.1 ng/mL (0.5-3.6)
[2025-06-05 12:14] LABS: CREATININE 1.0 mg/dL (0.6-1.0); UREA NITROGEN BLOOD 14 mg/dL (9-23)
[2025-06-05 12:26] LABS: TROPONIN I HIGH SENSITIVITY 146 ng/L (3.0-34)
[2025-06-05] MEDS: DOCUSATE SODIUM 100MG CAPSULE PO PRN (16:36)
[2025-06-06] VITALS (8 sets, daily range): BP systolic 91–115; BP diastolic 55–69; PULSE 75–86; RESP 18–20; TEMP 36.3–36.4; O2SAT 95–98
[2025-06-07] VITALS: BP 115/76; PULSE 90; RESP 20; TEMP 36.3; O2SAT 98
[2025-06-07 04:00] VITALS: BP 115/70; PULSE 83; RESP 18; TEMP 36.4; O2SAT 98
[2025-06-07 08:21] LABS: CREATININE 0.9 mg/dL (0.6-1.0)
[2025-06-07 08:22] LABS: UREA NITROGEN BLOOD 12 mg/dL (9-23)
[2025-06-07 08:43] VITALS: PULSE 72; RESP 20; O2SAT 100
[2025-06-07] MEDS: IPRATROPIUM BROMIDE (0.02%) 0.5MG/2.5ML NEB HHN PRN (08:43)
[2025-06-07] MEDS: LISINOPRIL 10MG TABLET PO SCH (09:00)
[2025-06-07] MEDS: FUROSEMIDE 20MG/2ML VIAL IV SCH (09:00)
[2025-06-07] MEDS ORDERED: EMPA10TA PO (12:00)
[2025-06-07] MEDS ORDERED: SPIR25TA6 MT (12:00)
[2025-06-07 12:30] VITALS: BP 117/68; PULSE 90; RESP 20; TEMP 36.1; O2SAT 98
[2025-06-07 12:41] VITALS: BP 117/68; PULSE 73; RESP 20; TEMP 97
== END 2025-06-07 13:35 | disposition home or self-care (01) | DRG 280 ==
LOC: ER 18:44 → 6WST 20:54 → EDBEDREQTM 21:10 → EDBEDREQ 21:10 → ENRESERV 06-03 02:32
PROVIDERS: ADMIT Hospitalist; ATTEND Hospitalist
DX: I11.0 Hypertensive heart disease with heart failure (principal); I50.43 Acute on chronic combined systolic (congestive) and diastolic (congestive) heart failure; I21.4 Non-ST elevation (NSTEMI) myocardial infarction; J44.1 Chronic obstructive pulmonary disease with (acute) exacerbation; F10.21 Alcohol dependence, in remission; I25.5 Ischemic cardiomyopathy; E78.5 Hyperlipidemia, unspecified; I25.10 Atherosclerotic heart disease of native coronary artery without angina pectoris; F17.200 Nicotine dependence, unspecified, uncomplicated; Z79.02 Long term (current) use of antithrombotics/antiplatelets; Z98.61 Coronary angioplasty status; I25.2 Old myocardial infarction; Z55.6 Problems related to health literacy; Z79.82 Long term (current) use of aspirin; Z79.84 Long term (current) use of oral hypoglycemic drugs; Z79.899 Other long term (current) drug therapy
CPT/HCPCS: 36415; 71045; 71275; 80048; 80061; 80076; 82550; 82553; 82962; 83036; 83735; 83880; 84439; 84443; 84484; 85025; 85379; 86850; 86900; 93005; 93306; 94070; 94640; 94664; 94760; 98960; 99291; J1650; J1938; Q9967; J8499